=== PATIENT | male | born 1945 | race Caucasian/White ===

== ENCOUNTER 2018-07-17 07:56 | Outpatient (CLI) | payer MEDICARE, OTHER ==
[2015-04-15 17:39] VITALS: BP 128/69
[2018-07-17 10:19] LABS: eGFR (Non-African) 58
== END 2018-07-17 07:58 ==
LOC: LAB 07:56
PROVIDERS: ATTEND Nurse Practitioner Family
DX: E11.65 Type 2 diabetes mellitus with hyperglycemia (principal); Z79.4 Long term (current) use of insulin
CPT/HCPCS: 36415; 80053; 80061; 83036; 84443

== ENCOUNTER 2019-01-29 07:51 | Outpatient (CLI) | payer MEDICARE, OTHER ==
[2015-04-15 17:39] VITALS: BP 128/69
[2019-01-29 09:06] LABS: eGFR (Non-African) 55
== END 2019-01-29 07:53 ==
LOC: LAB 07:51
PROVIDERS: ATTEND Nurse Practitioner Family
DX: E11.65 Type 2 diabetes mellitus with hyperglycemia (principal); E11.69 Type 2 diabetes mellitus with other specified complication; E78.5 Hyperlipidemia, unspecified; Z79.4 Long term (current) use of insulin
CPT/HCPCS: 36415; 80053; 80061; 83036